=== PATIENT | female | born 1955 | race Caucasian/White ===

== ENCOUNTER 2018-09-05 15:33 | Emergency (ER) | payer BC ==
[2018-09-05 15:42] VITALS: BP 133/79; PULSE 75; TEMP 98.5; BMI 25.9
[2018-09-05] MEDS ORDERED: DEXAMETHASONE LIQUID 0.5 MG/5 ML 240 ML BULK BOTTLE PO ONE (16:20)
[2018-09-05] MEDS ORDERED: DEXAMETHASONE SOD PHOSPHATE 10 MG/1 ML VIAL ONE (16:23)
--- NOTE | 2018-09-05 16:26 | PDOC ---
History of Present Illness - General Chief Complaint: Rash Stated Complaint: RASH Time Seen by Provider: 09/05/18 15:46 History Source: Patient Exam Limitations: No Limitations Past History - Travel Traveled outside of the country in the last 30 days: No Close contact w/someone who was outside of country & ill: No - Past Medical History Allergies/Adverse Reactions: Allergies Allergy/AdvReac Type Severity Reaction Status Date / Time Penicillins Allergy "SWELLING" Verified 09/05/18 15:39 Home Medications: Ambulatory Orders Cholecalciferol (Vitamin D3) [Vitamin D3 -] 400 unit PO DAILY 06/27/16 Methylprednisolone [Medrol Dose Garett] 4 mg PO ASDIR #21 tablet 09/05/18 hydrOXYzine HCL [Atarax -] 25 mg PO TID #21 tablet 09/05/18 COPD: No HTN: Yes - Surgical History Orthopedic Surgery: Yes (Bunionectomy) - Suicide/Smoking/Psychosocial Hx Smoking History: Never smoked Have you smoked in the past 12 months: No Hx Alcohol Use: No Drug/Substance Use Hx: No Substance Use Type: None Hx Substance Use Treatment: No Review of Systems - Review of Systems Able to Perform ROS?: Yes Comments:: 09/05/18 17:04 CONSTITUTIONAL: Absent: fever, chills, diaphoresis, generalized weakness, malaise, loss of appetite HEENT: Absent: rhinorrhea, nasal congestion, throat pain, throat swelling, difficulty swallowing, mouth swelling, ear pain, eye pain, visual Changes MUSCULOSKELETAL: Absent: myalgia, arthralgia, joint swelling SKIN: Present: rash Absent: itching, pallor NEUROLOGIC: Absent: headache, focal weakness or paresthesias, dizziness, unsteady gait, seizure, mental status changes, bladder or bowel incontinence PSYCHIATRIC: Absent: anxiety, depression, suicidal or homicidal ideation, hallucinations. Is the patient limited [place] Islander proficient: No *Physical Exam - Vital Signs Last Vital Signs Temp Pulse Resp BP Pulse Ox 98.5 F 75 16 133/79 100 09/05/18 15:39 09/05/18 15:39 09/05/18 15:39 09/05/18 15:39 09/05/18 15:39 - Physical Exam Comments: 09/05/18 17:05 GENERAL: The patient is awake, alert, and fully oriented, in no acute distress. HEAD: Normal with no signs of trauma. EYES: Pupils equal, round and reactive to light, extraocular movements intact, sclera anicteric, conjunctiva clear. EXTREMITIES: Normal range of motion, no edema. NEUROLOGICAL: Normal speech, normal gait. PSYCH: Normal mood, normal affect. SKIN: warm, non-blanching erythematous rash to R AC, R wrist L posterior arm in a linear fashion. Warm, Dry, normal turgor, no rashes or lesions noted. Medical Decision Making - Medical Decision Making 09/05/18 17:11 The patient is a 62 y/o F otherwise healthy with a rash to the arms b/l. She states that the arms are itchy. She has been taking benadryl for the rash. States she was out gardening two days ago. Denies fevers, chills, lightheadeness , weeping from the rash A/P: Poison Genevieve Non-blanching erythematous rash to the forearms, b/l in a linear fashion Will give decadron at this time as benadryl has not been working Medrol dose pack sent DC home with PCP follow up I discussed the physical exam findings, ancillary test results and final diagnoses with the patient. I answered all of the patient's questions. The patient was satisfied with the care received and felt comfortable with the discharge plan and treatment plan. The Patient agrees to follow up with the primary care physician/specialist within 24-72 hours. Return precautions were given. *DC/Admit/Observation/Transfer Diagnosis at time of Disposition: Poison genevieve dermatitis - Discharge Dispostion Disposition: HOME Condition at time of disposition: Stable Decision to Admit order: No - Prescriptions Prescriptions: hydrOXYzine HCL [Atarax -] 25 mg PO TID #21 tablet Methylprednisolone [Medrol Dose Garett] 4 mg PO ASDIR #21 tablet - Referrals Referrals: Roxana Guadarrama MD [Staff Physician] - - Patient Instructions Printed Discharge Instructions: DI for Poison Genevieve Allergy Additional Instructions: You were evaluated for your poison genevieve. Please start taking the steroids tomorrow as you were given your first dose today. Follow the dosing instructions on the bottle. Stop taking the Benadryl. Start taking the Atarax. You may take it 3 times a day. You may take this medication when you get home. Keep applying the Benadryl cream to help with the itching. Please follow up with her primary care doctor on Monday as previously arranged. Return to the ER for any new or worsening symptoms. Te evaluaron por tu hiedra venenosa. Por favor, comience a radha los esteroides maana arcelia se le peterson connolly primera dosis hoy. Siga las instrucciones de dosificacin del frasco. Alexus de radha el Benadryl. Empieza a radha el Atarax. Puede tomarlo 3 veces al da. Usted puede radha katharina medicamento cuando llegue a casa. Sigue aplicando la crema Benadryl para ayudar con la picazn. Por favor, nafisa un seguimiento con connolly mdico de atencin primaria el segn lo dispuesto anteriormente. Regrese a Urgencias para cualquier sntoma nuevo o que empeore. Print Language: GERMAN - Post Discharge Activity
== END 2018-09-05 16:32 | disposition home or self-care (01) ==
LOC: JERFT 15:33
DX: L23.7 Allergic contact dermatitis due to plants, except food (principal); I10 Essential (primary) hypertension
CPT/HCPCS: 99281-25